=== PATIENT | male | born 1950 | race Caucasian/White ===

== ENCOUNTER 2018-03-20 06:31 | Emergency (ER) | payer SELFPAY ==
[~2018-03-20] VITALS: Ht 175.3 cm; Wt 68.9 kg
--- OUTSIDE RECORDS SUMMARY | 2018-03-20 06:33 | XMS REPORT ---
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 Allergies, Adverse Reactions, Alerts This patient has no known allergies or adverse reactions. Medications This patient has no known medications. Encounters Start Date/Time End Date/Time Encounter Type Admission Type Attending [facility] Care Department Encounter ID 2017-12-16 00:00:00 2017-12-16 00:00:00 Outpatient [facility] [id number] 2017-10-26 14:20:08 2017-10-26 14:20:08 Outpatient [facility] [id number] 2017-08-25 00:00:00 2017-08-25 00:00:00 Outpatient [facility] [id number] 2017-07-20 00:00:00 2017-07-20 00:00:00 Outpatient [facility] [id number] 2017-07-06 00:00:00 2017-07-06 00:00:00 Outpatient [facility] [id number] 2017-06-12 10:57:49 2017-06-12 10:57:49 Outpatient [facility] [id number] 2017-06-11 15:18:43 2017-06-11 15:18:43 Outpatient [facility] [id number] 2017-06-09 00:00:00 2017-06-09 00:00:00 Outpatient [facility] [id number] 2017-05-20 09:21:28 2017-05-20 09:21:28 Outpatient [facility] [id number] 2017-03-25 14:59:39 2017-03-25 14:59:39 Outpatient [facility] [id number] 2017-03-25 14:16:06 2017-03-25 14:16:06 Outpatient [facility] [id number] 2017-03-02 00:00:00 2017-03-02 00:00:00 Outpatient [facility] [id number] 2017-03-02 00:00:00 2017-03-02 00:00:00 Outpatient [facility] [id number] 2017-02-20 00:00:00 2017-02-20 00:00:00 Outpatient [facility] [id number] 2017-02-11 00:00:00 2017-02-11 00:00:00 Outpatient [facility] [id number] 2016-12-16 00:00:00 2016-12-16 00:00:00 Outpatient [facility] [id number] 2016-11-10 00:00:00 2016-11-10 00:00:00 Outpatient [facility] [id number] 2016-11-06 15:39:20 2016-11-06 15:39:20 Outpatient [facility] [id number] 2016-11-05 12:11:45 2016-11-05 12:11:45 Outpatient [facility] [id number] 2016-11-04 09:01:33 2016-11-04 09:01:33 Outpatient [facility] [id number] 2016-11-03 00:00:00 2016-11-03 00:00:00 Outpatient [facility] [id number] 2016-10-22 15:06:07 2016-10-22 15:06:07 Outpatient [facility] [id number]
--- OUTSIDE RECORDS SUMMARY | 2018-03-20 06:33 | XMS REPORT | Clinical Summary ---
Author Author [facility] Address Unknown Phone Unavailable Care Team Providers Care [place] Name Role Phone Asked, No Pcp PCP Unavailable Allergies No Known Allergies Medications End Date Status Medication Sig Dispensed Refills Start Date 03/30/2017 amoxicillin (AMOXIL) 500 Take 1 21 capsule 0 MG capsule capsule (500 7 mg total) by mouth 3 (three) times a day for 10 days. 03/27/2017 ciprofloxacin-hydrocortis Administer 3 10 mL 0 one (CIPRO HC) 0.2-1 % drops into 7 otic suspension the left ear 2 (two) times a day for 7 days. 04/19/2017 acetaminophen (TYLENOL Take 1 tablet 20 tablet 0 EXTRA STRENGTH) 500 MG (500 mg 7 tablet total) by mouth every 6 (six) hours as needed for mild pain for up to 30 days. Active Problems Not on file Encounters Care Team Description Date Type Specialty Magalie Boudreaux PA Arroyo, Jesus Manuel, MD Ear pain, left (Primary Dx) 03/20/2017 Emergency Emergency Medicine after 03/19/2017 Social History Date Tobacco Use Types Packs/Day Years Used Current Every Day Smoker 0.5 Smokeless Tobacco: Never Used Alcohol Use Drinks/Week oz/Week Comments Yes 1 Glasses of 0.6 "cup of wine coolers" wine Sex Assigned at Date Recorded Not on file Industry Job Start Date Occupation Not on file Not on file Not on file Travel End Travel History Travel Start No recent travel history available. Last Filed Vital Signs Time Taken Vital Sign Reading 03/20/2017 10:48 PM [employer] Blood Pressure 178/86 03/20/2017 10:48 PM [employer] Pulse 68 03/20/2017 7:55 PM [employer] Temperature 36.5 C (97.7 F) 03/20/2017 10:48 PM [employer] Respiratory Rate 20 03/20/2017 10:48 PM [employer] Oxygen Saturation 99% - Inhaled Oxygen - Concentration - Weight - 03/20/2017 8:29 PM [employer] Height 175.3 cm (5' 9") - Body Mass Index - Plan of Treatment Not on file Results Not on fileafter 03/19/2017 Advance Directives Patient has advance care planning documents on file. For more information, germán goyal contact: Lizandro Frazier [address] [place] [address]
== END 2018-03-20 07:17 | disposition left against medical advice (07) ==
LOC: ER 06:31
DX: R10.9 Unspecified abdominal pain (principal)